=== PATIENT | female | born 1965 | race African-American/Black ===

== ENCOUNTER 2019-03-20 09:52 | Outpatient (CLI) | payer BC ==
--- NOTE | 2019-03-20 10:31 | ULT ---
Exam: Pelvic ultrasound HISTORY: Right-sided pelvic pain COMPARISON: None TECHNIQUE: Multiple grayscale and color Doppler images were obtained in a transabdominal pelvic ultra sound. Spectral analysis of the Doppler waveforms of the ovaries were performed. FINDINGS: CERVIX: Not visualized. UTERUS: Not visualized and surgically absent. No free fluid is present. RIGHT OVARY: Normal flow, without focal mass. LEFT OVARY: Normal flow, without focal mass. IMPRESSION: 1. Nonvisualization uterus compatible with patient's history of prior hysterectomy. 2. Normal appearing bilateral ovaries.
--- NOTE | 2019-03-20 11:22 | ULT ---
ULTRASOUND ABDOMEN COMPLETE: DATE: 03/20/2019 HISTORY: 54-year-old female with right-sided abdominal pain. TECHNIQUE: Riddle-scale ultrasound evaluation of the liver, gallbladder, spleen, pancreas, common bile duct, kidne ys, abdominal aorta, and inferior vena cava (IVC). FINDINGS: At the mid pole of the left kidney, there is an approximately 2.5 x 3.0 cm mass-like structure causin g a bulge in the renal outline. This has echogenicity similar to that of adjacent normal renal parenc hyma. No other bilateral renal abnormality identified. No hydronephrosis. No splenomegaly. Liver normal size and echogenicity. No sonographic abnormality of the pancreas identified. No abdominal aortic aneurysm. Unremarkable IVC where visualized. No free fluid identified. Gallbladder wall thickness normal. No gallstones or sludge identified. Common duct caliber 3 mm. IMPRESSION: 1. Focal mass-like structure at left renal mid pole could either be a dromedary hump or renal cell c arcinoma. The former is favored. Recommend further evaluation with CT of abdomen with contrast. 2. Otherwise normal abdominal ultrasound. JN R POS: OFF
== END 2019-03-20 09:53 | disposition home or self-care (01) ==
LOC: SCSULT 09:52
PROVIDERS: ATTEND Nurse Practitioner Family
DX: R10.9 Unspecified abdominal pain (principal); R19.00 Intra-abdominal and pelvic swelling, mass and lump, unspecified site
CPT/HCPCS: 76856; 93975